=== PATIENT | male | born 1990 | race African-American/Black ===

== ENCOUNTER 2021-04-08 23:13 | Emergency (ER) | payer SELFPAY ==
[2021-04-08 23:27] VITALS: BP 136/81; PULSE 98; TEMP 98.8; BMI 33.0
[2021-04-08] MEDS ORDERED: KETOROLAC TROMETHAMINE 60 MG/2 ML VIAL ONE (23:29)
[2021-04-08] MEDS ORDERED: KETOROLAC TROMETHAMINE 60 MG/2 ML VIAL IM ONE (23:35)
== END 2021-04-09 00:07 | disposition home or self-care (01) ==
LOC: FER 23:13
PROC: 3E023GC Introduction of Other Therapeutic Substance into Muscle, Percutaneous Approach (ICD-10-PCS; principal; 2021-04-08)
DX: S86.011A Strain of right Achilles tendon, initial encounter (principal); Y99.8 Other external cause status
CPT/HCPCS: 99284-25